=== PATIENT | male | born 1990 | race Hispanic/Latino ===

== ENCOUNTER 2019-10-13 17:37 | Emergency (ER) | payer OTHER | END 2019-10-13 18:28 | disposition home or self-care (01) | LOC: EDH 17:37 | DX: N47.6 Balanoposthitis (principal) ==

== ENCOUNTER 2020-12-07 10:20 | Emergency (ER) | payer SELFPAY ==
[2020-12-07] MEDS ORDERED: 0.9%NACL 1000ML 1,000 ML IV ONE ×2 (10:33→13:39)
[2020-12-07 10:35] LABS: APPEARANCE,URINE Turbid (CLEAR); BILIRUBIN,URINE Negative (NEGATIVE); COLOR,URINE Yellow (YELLOW); GLUCOSE, URINE (UA) Negative (NEGATIVE); KETONES,URINE 15 mg/dL (NEGATIVE); LEUKOCYTE ESTERASE ,URINE Trace (NEGATIVE); NITRATE,URINE Negative (NEGATIVE); OCCULT BLOOD,URINE Moderate (NEGATIVE); PH,URINE 5.5 (5.0-8.0); PROTEIN,URINE POS 1+ mg/dL (NEGATIVE)
[2020-12-07 10:49] LABS: BASOPHILS % (AUTO) 0.2 % (0.0-5.0); EOSINOPHILS % (AUTO) 0.6 % (0.0-8.0); HEMATOCRIT 46.1 % (42-54); LYMPHOCYTES % (AUTO) 7.7 % (21.0-51.0); MEAN CORPUSCULAR HEMOGLOBIN 29.7 pg (27.0-33.0); MEAN CORPUSCULAR HGB CONC 34.5 g/dL (32.0-36.0); MEAN CORPUSCULAR VOLUME 86.2 fL (79-99); MONOCYTES % (AUTO) 4.3 % (3.0-13.0); NEUTROPHILS % (AUTO) 86.8 % (40.0-77.0); PLATELET COUNT (AUTO) 277 K/uL (130-400); RED BLOOD CELL COUNT(AUTO) 5.35 MIL/uL (4.50-6.20); RED CELL DISTRIBUTION WIDTH 12.7 % (11.0-15.5); WHITE BLOOD COUNT (AUTO) 11.3 K/uL (4.8-10.8)
[2020-12-07] MEDS ORDERED: ONDANSETRON 4MG INJ ONE (10:55)
[2020-12-07] MEDS ORDERED: MORPHINE 4 MG SYG ONE (10:56)
[2020-12-07 10:57] LABS: CREATININE 1.1 mg/dL (0.5-1.5); POTASSIUM 3.5 mmol/L (3.5-5.1)
[2020-12-07 11:02] LABS: ALBUMIN 4.1 g/dL (3.5-5.0); BILIRUBIN,TOTAL 0.4 mg/dL (0.2-1.0); TOTAL PROTEIN, SERUM 8.4 g/dL (6.0-8.3)
[2020-12-07 11:05] LABS: BACTERIA,URINE Rare /HPF (None Seen); SQUAMOUS EPITHELIAL CELL,UR 0-2 /HPF (0-2); WBC,URINE 0-1 /HPF (0-1)
[2020-12-07] MEDS ORDERED: ACETAMINOPHEN 500 MG TABLET ONE (13:38)
== END 2020-12-07 16:07 | disposition home or self-care (01) ==
LOC: EDH 10:20
DX: A09 Infectious gastroenteritis and colitis, unspecified (principal); E86.0 Dehydration; R50.81 Fever presenting with conditions classified elsewhere
CPT/HCPCS: 36415; 80053; 81001; 82550; 83605; 83690; 85025; 87040 ×2; 93005; 96361; 96374; 96375; 99284; J2270; J2405; J7030 ×2